=== PATIENT | female | born 1955 | race Caucasian/White ===

== ENCOUNTER 2024-09-15 00:31 | Emergency (ER) | payer MEDICARE, BC, SELFPAY ==
--- OUTSIDE RECORDS SUMMARY | 2024-09-15 00:34 | XMS_ITS | Clinical Summary ---
Author Organization [facility] Address [address] [place] [id number] Care Team Providers Care Mobile Paint Specialist Name Role Phone Adalberto Childress MD Unavailable [phone] Chelle Menendez MD Primary Care Provide r Allergies Active Allergy Reactions Criticality Noted Date Comments Pneumococcal 23-Gricelda Ps Vaccine Edema 12/23/2018 Very painful swollen shoulder Sulfamethoxazole-Trimethopri m Rash 02/16/2010 Medications FISH OIL 1,000 MG CAP 1 daily 0 02/06/20 08 Active cholecalciferol (VITAMIN D) 1,000 unit capsule Take 1 capsule by mouth once daily. 0 06/21/19 10 Active multivitamin-folic acid 0.4 mg (MULTIPLE VITAMIN) tablet Take 1 tablet by mouth once daily. 0 06/01/19 12 Active acetaminophen SR (TYLENOL ARTHRITIS) 650 mg extended release tablet Take 1 tablet by mouth every 8 hours if needed. Max acetaminophen dose: 4000mg in 24 hrs. 0 06/01/19 12 Active Calcium Carbonate-Vitamin D3 (OSTEO-PORETICAL) 600mg (1,000mg) -1,000 unit tablet Take 1 tablet by mouth once daily. 0 11/30/19 17 Active albuterol HFA (ProAir HFA) 90 mcg/actuation inhalerIndications :Acute nasopharyngitis (common cold) Inhale 2 Puffs by mouth every 4 hours if needed for Shortness of Breath 1st choice or Wheezing 1st choice. 2 Each 07/15/19 22 Active estradioL (VAGIFEM) 10 mcg tab vaginal tabletIndications: Vaginal dryness, menopausal Insert into vagina at bedtime twice weekly 24 Tablet 3 10/05/19 23 Active fluticasone propion-salmeteroL (Advair Diskus) 100-50 mcg/dose diskus inhalerIndications :Asthma, unspecified asthma severity, unspecified whether complicated, unspecified whether persistent (HC) Inhale 1 Puff by mouth two times daily. As needed 04/11/19 24 Active ibuprofen (ADVIL; MOTRIN) 200 mg tabletIndications: Generalized body aches Take 1 Tablet (200 mg) by mouth once daily. 10/10/19 24 Active Pvtbueje-Gaab-Xbxq ag-Hyalur Ac 314-902-18-2 mg capIndications:Gen eralized body aches Take 2 Tablets by mouth once daily. 10/10/19 24 Active methylPREDNISolone (Medrol, Austyn,) 4 mg tabletIndications: Cervical radiculopathy Take by mouth as instructed per packaging. 21 Tablet 12/02/19 24 Active celecoxib 200 mg capsuleIndications :Cervical radiculopathy,Lumb ar facet arthropathy Take 1 Capsule (200 mg) by mouth once daily with a meal. As needed pain 60 Capsule 1 07/16/19 25 Active nirmatrelvir-riton avir (PAXLOVID (EUA)) 300 mg (150 mg x 2)-100 mg tabletIndications: COVID-19 virus infection Take by mouth two nirmatrelvir 150 mg pink-oval tablets and one ritonavir 100 mg white-oval tablet together twice daily for 5 days. 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/26 Painful lumbar facet arthropathy 08/06/2008 Pain in joint, pelvic region and thigh 8 Pain in joint, site unspecified 08/28/2007 Lyme disease 12/05/2006 Resolved Problems Problem Noted Date Diagnosed Date Resolved Date Back pain 12/04/2007 08/06/2008 Lumbosacral spondylosis without myelopathy 09/18/2007 08/06/2008 Encounters Date Type Department Care Team Description 08/31/2024 10:50 AM CDT Telemedicine [facility] [address] [place] [phone] Brittney Adams NP Telehealth (VV no vitals taken); Covid-19 Positive Result 08/31/2024 Travel 08/30/2024 Telephone [facility] [address] [place] [address] Chelle Menendez MD Medication Management (PAXLOVID) 08/30/2024 Nurse Triage [facility] [address] [place] [address] Chelle Menendez MD Error-please disregard 07/14/2024 Telephone [facility] [address] [place] [address] Chelle Menendez MD Medication Management ( celecoxib 200 mg Oral TWICE DAILY WITH MEALS) 07/07/2024 Refill [facility] [address] [place] [address] Chelle Menendez MD Refill Request (Celecoxib) from Last 3 Months Immunizations Immunization Administration Dates Next Due COVID-19 vaccine (BiOxyDyn-Bio NTech 30mcg/0.3mL) 12YO+ RAMONE-SUCROSE JAMES JIM 06/19/2021 COVID-19 vaccine (BiOxyDyn-Bio NTech 30mcg/0.3mL) PFJAMES 05/23/2020,05/02/2020 HepA-HepB (Twinrix) 04/16/2014,04/20/2013,2013 Influenza A (H1N1), Inactivated 03/08/2009 Influenza Virus, Unspecified 12/05/2017 Influenza, High-dose Quadriv alent Inactivated 12/18/2022 Influenza, IIV3 (Age 6-35 mos) 11/15/2008 Influenza, IIV3 (Age >=3 years) 12/27/19 17,12/03/2013,12/02/2012,2011,11/27/2010,12/27/2009,12/25/2007 Influenza, IIV4 01/16/2022,12/15/2020 Influenza, IIV4 (=>6mos) MDV 12/08/2019,11/26/19 19,12/06/2014 Influenza, Injectable, Mdck, Quadrivalent, W/preservative 12/05/2017 Influenza, Whole Virus 12/06/2016 Pneumococcal Poly,23-Valent (Pneumovax) 12/19/2018 Td (Age >=7 Years) 08/09/2000 Tdap 06/27/2023,06/01/2011 Typhoid (injectable) 03/13/2013 Zoster (Shingrix-RZV, recombinant) 06/20/2023 Family History Medical History Relation Name Comments Heart Disease Father age 50 Hypertension Father at age 50 Unknown Maternal Grandfather Unknown Maternal Grandmother Arthritis Mother mild Cancer-breast Mother Cancer-breast Other 3 cousins Unknown Paternal Grandfather Unknown Paternal Grandmother Anesthesia Problem No Family History Blood Disease No Family History Cancer-ovarian No Family History Relation Name Status Comments Father Maternal Grandfather Maternal Grandmother Mother (Age 81) breast can cer Other Paternal Grandfather Paternal Grandmother Social History Tobacco Use Types Packs/Day Years Used Date Smoking Tobacco: Never Smokeless Tobacco: Never Tobacco Cessation:Counseling Given: Yes Alcohol Use Standard Drinks/Week Comments Yes 0 (1 standard drink = 0.6 oz pur e alcohol) PHQ-2 Answer Date Recorded PHQ-2 TOTAL SCORE 0 10/10/2023 Social Connections Answer Date Recorded Do you often feel lonely or isolated from those around you? 0 04/11/2023 Financial Resource Strain Answer Date R ecorded Difficulty of Paying Living Expenses 3 04/11/2023 Difficulty of Paying Living Expenses Not on file 04/11/2023 Food Insecurity Answer Date Recorded Do you worry your food will run out before you are able to buy more? 1 04/11/2023 Transportation Needs Answer Date Record ed Does lack of transportation keep you from medica l appointments? 1 04/11/2023 Does lack of transportation keep you from work, meetings or getting things that you need? 1 04/11/2023 Housing Stability Answer Date Recorded What is your housing situation today? 1 04/11/2023 Utilities Answer Date Recorded Do you have trouble paying f or utilities (for example, heat, electricity, water, phone)? 1 04/11/2023 Comments No Sex and Gender Information Value Date Recorded Sex Assigned at Not on file Legal Sex Female 6:05 AM PER DIEM NURSE Gender Identity Not on file Sexual Orientation Not on file Occupation Industry Job Start Date Job End Date Not on file Not on file Not on file Not on file Travel History Travel Start Travel End [facility] 08/22/2024 08/26/2024 [place] 08/04/2024 08/22/2024 Obstetrics History Para Term AB IAB SAB Ectopic Multiple Livin g Live Births 3 3 3 Date Outcome GA Total Labor Labor/2nd/3rd Weight Sex Type Anes PTL Allyson A1 A5 Name Clin Living Living Living Last Filed Vital Signs Vital Sign Reading Time Taken Comments Blood Pressure 127/69 12/19/2023 7:37 AM CDT Pulse 61 12/19/2023 7:37 AM CDT Temperature 36.9 C (98.4 F) 12/19/2023 7:37 AM CDT Respiratory Rate 16 05/14/2022 9:41 AM CDT Oxygen Saturation 96% 12/19/2023 7:37 AM CDT Inhaled Oxygen Concentration - - Weight 57.1 kg (125 lb 14.4 oz) 10/10/2023 7:13 AM CDT Height 172.7 cm (5' 8) 10/10/2023 7:13 AM CDT Body Mass Index 19.14 10/10/2023 7:13 AM CDT Plan of Treatment Health Maintenance Due Date Last Done Comments Hepatitis C screening for ag e 18-79 1975 RSV vaccine for adults or (1 - Risk 60-74 years 1-dose series) 2017 Pneumococcal series for age 50+ (2 of 2 - PCV) 12/20/2019 12/19/2018 Zoster (shingles) series for age 50+ (2 of 2) 08/15/2023 06/20/2023 COVID-19 vaccine series ( season) 2024 03/06/2024, 06/27/2023, 12/18/2022, Additional history exists BMI (ht and wt on same day) for age 18+ 10/09/2024 10/10/2023, 10/04/2022, 08/03/2020, Additional history exists Depression screening for age 12+ 10/09/2024 10/10/2023, 10/04/2022, 12/19/2018, Additional history exists Mammogram for age 45-75 10/09/2024 10/10/19, 08/07/2022, 06/19/2021, Additional history exists Medicare Wellness for age 65+ 10/10/2024 10/10/2023, 10/04/2022 Influenza Vaccine (#1) 2024 , 12/15/2020, 12/08/2019, Additional history exists Lipids for age 45-75 10/09/2028 10/10/2023, 10/04/2022, 09/24/2017, Additional history exists Colonoscopy through age 75 01/13/202901/13, 01/13/2019, 01/13/2019, Additional history exists Tetanus booster 06/26/2033 06/27/2023, 04/0 07/2011, 02/06/2008, Additional history exists Hepatitis B series for 19+ Completed 04/16, 04/20/2013, 03/17/2013 DEXA/DXA scan for age 65+ Completed 2022, 10/10/2017, 01/30/2013 Procedures Procedure Name Priority Date/Time Associated Diagnosis Comments LIPID PANEL W REFLEX MEASURED LDL Routine 10/10/2023 8:30 AM CDT Lipid screening XR MAMMO MALENA BILAT SCREEN Routine 10/10/2023 8:15 AM CDT Visit for screening mammogram XR DXA BONE DENSITY 2 SITES AXIAL Routine 02/07/2023 11:15 AM PER DIEM NURSE Menopause COLONOSCOPY 01/13/2019 1:57 PM PER DIEM NURSE from Last 3 Months or Most Recently Relevant to Health Maintenance Results * (ABNORMAL) LIPID PANEL W REFLEX MEASURED LDL (10/10/2023 8:30 AM CDT) CHOLESTEROL,TOTAL 278(H) 100 - 199 mg/dL 10/10/2023 5:57 PM CDT [facility] Comment: Cholesterol, Total Reference Ranges Desirable <200 mg/dL Borderline 200-239 mg/dL High >=240 mg/dL TRIGLYCERIDES 49 <150 mg/dL 10/10/2023 5:57 PM CDT [facility] HDL CHOLESTEROL 151 >40 mg/dL 5:57 PM CDT [facility] NON-HDL CHOLESTEROL 127 <145 mg/dl 10/10/2023 5:57 PM CDT [facility] CHOL/HDL RATIO 1.84 <4.50 10/10/2023 5:57 PM CDT [facility] LDL CHOLESTEROL 117 <=130 mg/dL 10/10/2023 5:57 PM CDT [facility] VLDL CHOLESTEROL 10 <=30 mg/dL 10/10/2023 5:57 PM CDT [facility] PROVIDER ORDERED STATUS RANDOM 10/10/2023 5:57 PM CDT [facility] Blood BLOOD SPECIMEN / Unknown Venipuncture / Unknown 10/10/2023 8:30 AM CDT 10/10/2023 9:03 AM CDT us Chelle Menendez MD CHEMISTRY Final Result [facility] [address] [place] [address], [place] * XR MAMMO MALENA BILAT SCREEN (10/10/2023 8:15 AM CDT) Anatomical Region Laterality Modality BREASTS, Breast Left, Breast Right Bilateral Mammography Impressions 10/10/2023 3:53 PM CDT There is no radiographic evidence for malignancy. Recommend annual mammograms. MAMMOGRAM ASSESSMENT: ACR 1 Negative PATIENTS: You will also receive a letter with your examination results in an easy to read format. If you have questions about your results, please contact your referring provider. Narrative 10/10/2023 3:53 PM CDT For Patients: As a result of the Century Cures Act, medical imaging exams and procedure reports are released immediately into your electronic medical record. You may view this report before your referring provider. If you have questions, please contact your health care provider. XR MAMMO MALENA BILAT SCREEN [[id number]] CLINICAL HISTORY: This is an asymptomatic 68 y.o. patient. INDICATION FOR EXAM: Mammogram Screening. TECHNIQUE: CC & MLO views were obtained. This study was evaluated with the assistance of Computer-Aided Detection. Breast Tomosynthesis was used in interpretation. COMPARISON FILM: Yes 08/07/22 [facility] 06/19/21 [facility] FINDINGS: The breasts are heterogeneously dense, which may obscure small masses. There are no dominant masses, suspicious micro calcifications or areas of architectural distortion. us Chelle Menendez MD MAMMO Final Result * (ABNORMAL) XR DXA BONE DENSITY 2 SITES AXIAL [00826.1] (02/07/2023 11:15 AM PER DIEM NURSE) Anatomical Region Laterality Modality Spine, HIPS, HIPL, HIPR Other Impressions 02/13/2023 7:37 AM PER DIEM NURSE Osteopenia. RECOMMENDATIONS: The National Osteoporosis Foundation recommends pharmacologic treatment for patients with T-scores of -2.5 or less, patients with prior history of fragility fractures, or patients with 10-year probability of greater than 3% at hips or greater than 20% of suffering major osteoporotic fractures. Recommend continued optimization of calcium and vitamin D intake through dietary means and/or supplementation and regular exercise. Repeat scan recommended in 3-5 years. Soco Coffey PA-C [facility] 02/13/2023 Narrative 02/13/2023 7:37 AM PER DIEM NURSE For Patients: Results are automatically released to your [facility] ([place]) account once available, in compliance with federal regulations. This means that you may see your results before your provider has had a chance to review them. Please allow 2-3 business days for your provider to comment on the results. XR DXA Bone Mineral Density (BMD) EXAM [facility] [address] [facility] [id number] PATIENT NAME: Rosario Brantley DATE OF : 1955 EXAM DATE: 02/07/2023 REQUESTING PROVIDER: Chelle Menendez MD GENDER AT : female HEIGHT: 5' 7.5 (10/04/2022) WEIGHT: 122 lb 14.4 oz (10/04/2022) MENOPAUSAL STATUS: Postmenopausal RACE/ETHNICITY: White RISK FACTORS: Weight < 127 lbs. and White Race CURRENT MEDICATION FOR BONE LOSS: NONE INDICATION: Follow-up of existing osteopenia and Post-Menopause COMPARISON DATE(S): 2018 DXA scans are compared to prior studies for a patient only when the two (or more) studies were performed on the same scanner. It is not possible to compare data generated on one scanner to data from another because there are not standards in DXA equipment. This applies even if the two scanners are made by the same manager warehouse. PROCEDURE: Dual-energy x-ray absorptiometry performed with routine technique. Reporting is completed in the form of a T-score. The T-score represents the standard deviation from peak bone mass based on young healthy adult. A Z-score is used for diagnosis in premenopausal women, and for men under the age of 50. FINDINGS: RESULT LUMBAR SPINE L2 - L4 BMD: 1.354 g/cm2 T-Score: + 1.1 Z-Score: + 3.0 Change from prior in 2012: Increase 11.0%. RESULTS FEMUR Left femoral neck BMD: 0.836 g/cm2 T-Score: - 1.5 Z-Score: + 0.3 Change from prior in 2018: Decrease 2.7%. Right femoral neck BMD: 0.906 g/cm2 T-Score: - 1.0 Z-Score: + 0.8 Change from prior in 2018: Decrease 4.6%. Left hip BMD: 0.943 g/cm2 T-Score: - 0.5 Z-Score: + 1.0 Change from prior in 2018: Decrease 1.0%. Right hip BMD: 0.903 g/cm2 T-Score: - 0.8 Z-Score: + 0.6 Change from prior in 2018: Decrease 5.8%. WHO criteria: Normal: T-score at or above -1 SD Osteopenia: T-score between -1.1 and -2.4 SD Osteoporosis: T-score at or below -2.5 SD FRAX RISK CALCULATION (USED FOR OSTEOPENIA ONLY): 10-year probability of major osteoporotic fracture: 7.6%. 10-year probability of hip fracture: 0.9%. us Chelle Menendez MD DEXA Final Result * COLONOSCOPY (01/13/2019 1:57 PM PER DIEM NURSE) 01/13/2019 1:57 PM PER DIEM NURSE Narrative Transcriptions Ander Markham MD - 01/13/2019 3:11 PM CST Patient Name: Rosario Brantley Procedure Date: 01/13/2019 Gender: Female Date of : 1955 Admit Type: Outpatient Procedure: Colonoscopy Proceduralist: Ander Markham MD , Rolanda Paris (Nurse) Indications/Pre-Op Diagnosis: Screening for colorectal malignant neoplasm, Last colonoscopy: December 2008 Medications: Fentanyl 100 micrograms IV, Midazolam 4 mgIV, The level of sedation administered wasmoderate Procedure Description: The patient had risks, benefits and alternatives explained to andgave informed consent. The patient had a stable cardiopulmonary status and judged an adequate candidate for conscious sedation. The Colonoscope was passed through the anus and advanced to thececum, identified by appendiceal orifice and ileocecal valve. Thecolonoscopy was performed without difficulty. The patient tolerated the procedure well. The quality of the bowel preparation was good. The ileocecal valve, appendiceal orifice, and rectum were photographed. Complications: No immediate complications. Estimated Blood Loss & Specimen: Estimated blood loss: none. Specimen collected - None Findings: The perianal and digital rectal examinations were normal. The entire examined colon appeared normal on direct and retroflexion views. Impressions/Post-Op Diagnosis: - The entire examined colon is normal on direct and retroflexionviews. - No specimens collected. Recommendation: - Patient has a contact number available for emergencies. The signsand symptoms of potential delayed complications were discussed with the patient. Return to normal activities tomorrow. Written discharge instructions were provided to the patient. - Resume previous diet. - Continue present medications. - Repeat colonoscopy in 10 years for screening purposes. Moderate Sedation: Moderate (conscious) sedation was administered by the endoscopy nurse and supervised by the endoscopist. The following parameters were monitored: oxygen saturation, heart rate, respiratory rate, blood pressure, adequacy of pulmonary ventilation and reponse to care. Please refer to the [facility]' medical record flowsheets and nursing notes for moderate sedation details. Total physician intraservice time was 18 minutes. Ander Markham MD 01/13/2019 3:11:30 PM This report has been signed electronically. Note Initiated On: 01/13/2019 1:57 PM Procedure Code(s): --- Professional --- 06795, Colonoscopy, flexible; diagnostic, including collection of specimen(s) bybrushing or washing, when performed (separateprocedure) Diagnosis Code(s): --- Professional --- Z12.11, Encounter for screening formalignant neoplasm of colon CPT copyright 2018 [employer]. All rights reserved. The codes documented in this report are preliminary and upon bottle capping machine operator reviewmay be revised to meet current compliance requirements. Scope In: 2:50:17 PM Scope Withdrawal Time 0 hours 9 minutes 36 seconds Scope Out: 3:05:56 PM us Ander Markham MD PROCEDURE ORD Final Res ult from Last 3 Months or Most Recently Relevant to Health Maintenance Insurance [employer] [place] [employer] PB ONLY Care Teams Mobile Paint Specialist Relationship Specialty Start Date End Date Chelle Menendez MD [address] [place] [address] PCP - General Family Practice 12/09/18 Adalberto Childress MD [address] [place] [address] Family Practice 11/29/16
[2024-09-15 00:38] VITALS: BP 135/75; PULSE 82; RESP 16; TEMP 37.2; O2SAT 96; BMI 18.9
--- NOTE | 2024-09-15 00:40 | ED.GENADULT ---
HPI - General Adult General Time Seen by Provider: 00:40 Date Seen: 09/15/24 Chief complaint: Shortness of Breath/Dyspnea Stated complaint: Pain in R calf/ shortnees of breath Time Seen by Provider: 09/15/24 00:40 Source: patient Mode of arrival: ambulatory Limitations: no limitations History of Present Illness HPI narrative: 69-year-old female who comes in today complaining calf pain and shortness of breath. Patient was watching a movie, had abrupt onset of pain around the right knee and right calf, subsequently developed some shortness of breath. No chest pain, no cough, no nausea vomiting. She denies fever chills. No prior history of blood clots. Related Data Home Medications ?Medication ?Instructions ?Recorded ?Confirmed celecoxib 200 mg capsule 200 mg PO DAILY 09/15/24 09/15/24 Allergies Allergy/AdvReac Type Severity Reaction Status Date / Time amoxicillin Allergy Mild Rash Verified 09/15/24 00:44 Exam Narrative: Exam Narrative: General: Well-developed and well-nourished, no acute distress Head: Atraumatic and normocephalic Eyes: Pupils are equal reactive, extraocular motions intact, conjunctiva clear ENT: External nose and ears are normal, posterior pharynx without erythema or exudate Neck: No midline cervical tenderness, full spontaneous range of motion the neck, trachea midline, no adenopathy Heart: Regular rate and rhythm no murmurs or thrills Lungs: Clear to auscultation bilaterally without wheezes or crackles Abdomen: Soft, nontender, nondistended with active bowel sounds Musculoskeletal: Point tenderness of the proximal end of the fibula laterally and posteriorly, pain with resisted plantar flexion. No calf pain or tenderness, no leg swelling. Neurologic: Awake, alert, and oriented x3, no gross focal neurologic deficits, cranial nerves intact as tested Psych: Mood and affect are appropriate Skin: No rashes Const: Vital Signs, click to edit/add: Vital Signs - 24 hr 09/15/24 00:38 Temperature 99.0 F Pulse Rate [Pulse Oximeter] 82 Respiratory Rate 16 Blood Pressure [Ri ght Upper Arm] 135/75 Pulse Oximetry 96 Course Course ED Course: Reviewed most recent primary care visit from September 2023, this was an annual Medicare physical when patient is noted to have slightly elevated LFTs that were thought to be related to Tylenol in the past, those recheck, also history of arthritis, asthma managed with Advair and albuterol as needed. EKG independently interpreted by me performed at 1:05 a.m. demonstrates sinus rhythm rate 83, no acute ischemic changes, normal intervals, normal axis, QTC 467, IL 138. No prior for comparison. patient seen and examined, presents today with right knee pain and shortness of breath, abrupt onset this evening. She is concerned about a DVT or PE, traveled to [place] about 3 weeks ago. On exam here patient's vital is stable, no hypoxia, lungs are clear, no tachycardia. She has point tenderness over the lateral proximal fibular head in just posterior to this with pain with resisted plantar flexion. No calf tenderness and no leg swelling. Symptoms are not consistent with DVT given location and point tenderness, this most likely represents musculoskeletal pain, abrupt onset is little unusual. Toradol IV is ordered for this. Patient also with shortness of breath, recent travel, in recently had COVID as well. Suspect this may be partially asthma related and partially stress related as a came on after her severe right leg pain, however moderate risk for clots and cannot PERC out so CT PE study is ordered. Reevaluation(s) Time of Reevaluation #1: 01:46 Reevaluation #1: Labs independently interpreted by me with normal CBC. CT scan of the chest independently interpreted by me without acute pulmonary embolism, no acute infiltrate effusion, no pericardial effusion. Time of Reevaluation #2: 02:00 Reevaluation #2: Reviewed radiology interpretation of CT scan which is negative for acute abnormality. Troponin is negative. Patient's shortness of breath resolved. She had no chest pain with this. Suspect may have been acute stress reaction related to her knee pain. Examination there is still tenderness over the fibular head bilaterally, no little bit of bruising and swelling on the anterior lateral lower leg as well. We discussed care of this, Stevan wrap applied and stable for discharge. Patient has crutches at home, weight-bearing as tolerated and follow up with primary care, consider physical therapy. Vital Signs Vital signs: Initial Vital Signs Temperature 99.0 F 09/15/24 00:38 Temperature Source Temporal Artery Scan 09/15/24 00:38 Pulse Rate 82 09/15/24 00:38 Respiratory Rate 16 09/15/24 00:38 Blood Pressure 135/75 09/15/24 00:38 Blood Pressure Mean 95 09/15/24 00:38 Pulse Oximetry 96 09/15/24 00:38 Vital Signs Temperature 99.0 F 09/15/24 00:38 Pulse Rate 82 09/15/24 00:38 Respiratory Rate 16 09/15/24 00:38 Blood Pressure 135/75 09/15/24 00:38 Pulse Oximetry 96 09/15/24 00:38 Temperature 99.0 F 09/15/24 00:38 Pulse Rate 82 09/15/24 00:38 Respiratory Rate 16 09/15/24 00:38 Blood Pressure 135/75 09/15/24 00:38 Pulse Oximetry 96 09/15/24 00:38 Medications Administered Medications: Discontinued Medications Generic Name Dose Route Start Last Admin Trade Name Jadyn PRN Reason Stop Dose Admin Ketorolac Tromethamine 15 mg 09/15/24 01:31 09/15/24 01:48 Ketorolac 15 Mg/Ml Inj IVP 09/15/24 01:32 15 mg ONCE ONE Administration Medical Decision Making Lab Data Labs: Lab Results 09/15/24 09/15/24 09/15/24 Range/Units 01:06 01:13 01:24 WBC 7.32 (4.50-11.00) K/uL RBC 3.97 L (4.00-5.20) m/uL Hgb 12.4 (12.0-16.0) gm/dL Hct 38.0 (33.0-51.0) % MCV 96 (80-100) fL MCH 31 (26-34) pg MCHC 33 (32-36) gm/dL RDW Coeff of Cory 12.6 (11.5-15.5) % Plt Count 207 (140-440) K/uL Neut % (Auto) 67.4 (42.0-72.0) % Lymph % (Auto) 20.4 (20-44) % [place] % (Auto) 9.0 (0.0-11.0) % Eos % (Auto) 2.7 (0.0-7.0) % Baso % (Auto) 0.4 (0.0-3.0) % Neut # (Auto) 4.93 (1.7-7.0) K/uL Lymph # (Auto) 1.49 (0.90-2.90) K/uL [place] # (Auto) 0.70 (0.00-0.90) K/UL Eos # (Auto) 0.20 (0.00-0.50) K/uL Baso # (Auto) 0.03 (0.00-0.30) K/uL Abs Immat Gran (auto) 0.01 (0.00-0.30) K/uL Imm/Tot Granulo (auto) 0.1 % Sodium 137 (135-149) mmol/L Potassium 3.6 (3.6-5.1) mmol/L Chloride 107 (96-114) mmol/L Carbon Dioxide 25 (20-32) mmol/L Anion Gap 5 L (7-15) mEq/L BUN 18 (7-30) mg/dL Creatinine 0.7 (0.5-1.5) mg/dL Estimated Creat Clear 48.47 Estimated GFR 95 ml/min Glucose 94 (60-115) mg/dL Calcium 9.0 (8.4-10.6) mg/dL Magnesium 2.0 (1.5-2.6) mg/dL NT-Pro-B Natriuret Pep 99 (See Note) pg/mL POC Creatinine 0.8 (0.6-1.3) mg/dl POC Troponin I 0.01 (0.01-0.04) ng/ml Discharge Plan Discharge Clinical Impression: Acute pain of right knee, Acute dyspnea Patient Disposition: Home, Self-Care Instructions: Knee Pain (ED) Additional Instructions: Use crutches as needed, weight-bearing as tolerated. Tylenol and ibuprofen for pain. Stevan wrap for comfort. Follow up to primary care doctor this week for re-evaluation and consideration for physical therapy. Activity Level: Weight Bearing as Tolerated Discharge Diet: Regular Prescriptions: No Action celecoxib 200 mg capsule 200 mg PO DAILY Follow Up/Referrals: Chelle Menendez MD [Primary Care Provider, Family Practice] Stand Alone Forms: [facility] Info Instructions
--- NOTE | 2024-09-15 01:05 | CRLHL7_ITS ---
For Patients: As a result of the Century Cures Act, medical imaging exams and procedure reports are released immediately into your electronic medical record. You may view this report before your referring provider. If you have questions, please contact your health care provider. Indication: Chest pain, shortness of breath Technique: Postcontrast CTA of the chest following 95 mL Isovue 370 IV contrast. Axial MIP images obtained. Comparison: None Findings: Pulmonary arteries: No pulmonary embolism appreciated. Lungs: No consolidation. No effusion. No pneumothorax. Mild atelectasis and/or scarring. Mediastinum: No acute abnormality appreciated. Lymph nodes: No gross lymphadenopathy. Upper abdomen: No acute abnormality appreciated. Soft tissues: No acute abnormality appreciated. Bones: No acute abnormality appreciated. Mild spinal curvature. Degenerative changes of the spine and shoulders. Impression: No acute abnormality appreciated. Please note that all CT scans at this facility use dose modulation, iterative reconstruction, and/or weight-based dosing when appropriate to reduce radiation dose to as low as reasonably achievable. Dictated by Philipp Will MD @ 09/15/2024 1:59:52 AM (Electronically Signed)
[2024-09-15 01:32] LABS: Hematocrit 38.0 % (33.0-51.0); Hemoglobin* 12.4 gm/dL (12.0-16.0); Immature Granulocytes Abs Auto 0.01 K/uL (0.00-0.30); Immature Granulocytes Pct Auto 0.1 %; Lymphocytes Absolute Auto 1.49 K/uL (0.90-2.90); Mean Corpuscular HGB Conc 33 gm/dL (32-36); Mean Corpuscular Hemoglobin 31 pg (26-34); Mean Corpuscular Volume 96 fL (80-100); RDW Coefficient of Variation % 12.6 % (11.5-15.5); Red Blood Count 3.97 m/uL (4.00-5.20); Slide Review Reflex No; White Blood Count* 7.32 K/uL (4.50-11.00)
[2024-09-15 01:44] LABS: Chloride* 107 mmol/L (96-114); Potassium* 3.6 mmol/L (3.6-5.1); Sodium* 137 mmol/L (135-149)
[2024-09-15 01:47] LABS: Anion Gap 5 mEq/L (7-15); Blood Urea Nitrogen* 18 mg/dL (7-30); Calcium* 9.0 mg/dL (8.4-10.6); Carbon Dioxide* 25 mmol/L (20-32); Creatinine* 0.7 mg/dL (0.5-1.5); Est. Creatinine Clearance* 48.47; Estimated Glomerular Filt Rate 95 ml/min; Glucose* 94 mg/dL (60-115)
[2024-09-15 01:57] LABS: NT Pro B Type NatriureticPept* 99 pg/mL (See Note)
[2024-09-15 02:00] VITALS: BP 116/59; PULSE 79; RESP 16; O2SAT 98
[2024-09-15 02:00] LABS: Troponin, Point-of-Care* 0.01 ng/ml (0.01-0.04)
[2024-09-15 02:00] LABS: Creatinine, Point-of-Care* 0.8 mg/dl (0.6-1.3)
[2024-09-15 02:25] VITALS: O2SAT 98
== END 2024-09-15 02:25 | disposition home or self-care (01) ==
PROVIDERS: Emergency Provider Family Medicine; PCP Family Medicine
DX: M25.561 Pain in right knee (principal); R06.09 Other forms of dyspnea
CPT/HCPCS: 36415; 71275; 80048; 82565; 83735; 83880; 84484; 85025; 85379; 93005; 94761; 96374; 99285; J1885; Q9967